=== PATIENT | male | born 1965 | race Asian ===

== ENCOUNTER 2019-10-16 09:26 | Day surgery (SDC) | payer BC ==
[~2019-10-16] VITALS: Ht 30.5 cm; Wt 0.5 kg
== END 2019-10-16 10:10 | disposition home or self-care (01) ==
LOC: OR 09:26
PROC: 3E0T3BZ Introduction of Anesthetic Agent into Peripheral Nerves and Plexi, Percutaneous Approach (ICD-10-PCS; principal; 2019-10-16)
PROC: 3E0T33Z Introduction of Anti-inflammatory into Peripheral Nerves and Plexi, Percutaneous Approach (ICD-10-PCS; 2019-10-16)
DX: M47.816 Spondylosis without myelopathy or radiculopathy, lumbar region (principal)
CPT/HCPCS: J1100; J2001

== ENCOUNTER 2019-11-03 07:43 | Day surgery (SDC) | payer BC | END 2019-11-03 09:12 | disposition home or self-care (01) | LOC: OR 07:43 | PROC: 3E0T3BZ Introduction of Anesthetic Agent into Peripheral Nerves and Plexi, Percutaneous Approach (ICD-10-PCS; principal; 2019-11-03) | PROC: 3E0T33Z Introduction of Anti-inflammatory into Peripheral Nerves and Plexi, Percutaneous Approach (ICD-10-PCS; 2019-11-03) | DX: M47.816 Spondylosis without myelopathy or radiculopathy, lumbar region (principal) | CPT/HCPCS: J1100; J2001 ==